=== PATIENT | female | born 1985 | race Two or more races ===

== ENCOUNTER → 2023-04-30 08:45 | Outpatient (CLI) | payer OTHER | END | disposition home or self-care (01) | LOC: PRENATAL 08:45 | PROVIDERS: ATTEND Obstetrics & Gynecology Maternal & Fetal Medicine | DX: O36.80X0 Pregnancy with inconclusive fetal viability, not applicable or unspecified (principal); Z36.9 Encounter for antenatal screening, unspecified; Z36.82 Encounter for antenatal screening for nuchal translucency; O99.891 Other specified diseases and conditions complicating pregnancy; Z3A.11 11 weeks gestation of pregnancy ==

== ENCOUNTER 2023-09-22 13:39 | Outpatient (CLI) | payer OTHER | END 2023-09-22 13:43 | disposition home or self-care (01) | LOC: PRENATAL 13:39 | PROVIDERS: ATTEND Obstetrics & Gynecology Maternal & Fetal Medicine | DX: O26.843 Uterine size-date discrepancy, third trimester (principal); O36.8130 Decreased fetal movements, third trimester, not applicable or unspecified; O99.891 Other specified diseases and conditions complicating pregnancy; O09.513 Supervision of elderly primigravida, third trimester; O99.013 Anemia complicating pregnancy, third trimester; Z3A.32 32 weeks gestation of pregnancy ==

== ENCOUNTER 2023-11-03 03:36 | Inpatient (IN) | payer OTHER ==
[~2023-11-03] VITALS: Ht 157.5 cm; Wt 64.0 kg
[2023-11-03] VITALS (7 sets, daily range): BP systolic 99–125; BP diastolic 57–70
[2023-11-03] MEDS ORDERED: SINGULAIR10 MG PO (03:45)
[2023-11-03] MEDS ORDERED: RINGERS SOLUTION,LACTATED 1,000 ML IV SCH (03:45)
[2023-11-03] MEDS ORDERED: PRENATAL TABLE1 EAC4 PO (03:45)
[2023-11-03] MEDS ORDERED: PEPCID AC20 MG PO (03:46)
[2023-11-03] MEDS ORDERED: CLARINEX-D 121 EACH PO (03:46)
[2023-11-03] MEDS ORDERED: PRILOSEC OTC20 MG PO (03:46)
[2023-11-03 05:06] LABS: HEMATOCRIT 35.9 % (36.0-45.00); MEAN CELL VOLUME 84.7 fL (80.00-100.00); MEAN CORPUSCULAR HEMOGLOBIN 28.4 pg (27.00-32.0); MEAN CORPUSCULAR HGB CONC 33.5 g/dl (32.0-36.0); PLATELET COUNT 205 K/uL (150-450); RED BLOOD COUNT 4.24 M/uL (4.00-6.00)
[2023-11-03 05:09] LABS: URINE APPEARANCE Clear; URINE BILIRRUBIN Negative (NEGATIVE); URINE BLOOD Negative; URINE COLOR Yellow; URINE GLUCOSE Negative (NEGATIVE); URINE KETONE 15 (NEGATIVE); URINE LEUKOCYTE Negative; URINE NITRATE Negative; URINE PROTEIN Negative (NEGATIVE); URINE UROBILINOGEN 0.2 E.U./dl
[2023-11-03 05:10] LABS: URINE BACTERIA 8.8 uL (0.0-1933); URINE EPITHELIAL CELLS 3.8 uL (0.0-38.8); URINE RBC 3.3 uL (0.0-20.8); URINE WBC 2.4 uL (0.0-23.2)
[2023-11-03 05:23] LABS: INR < 0.93; PARTIAL THROMBOPLASTIN TIME 24.4 SECONDS (22.0-34.0); PROTHROMBIN TIME 10.2 SECONDS (9.0-11.5)
[2023-11-03 05:27] LABS: ALBUMIN 2.6 gm/dL (3.4-5.0); BILIRUBIN TOTAL 0.28 mg/dL (0.3-1.2); CALCIUM 8.5 mg/dL (8.5-10.1); CREATININE SERUM 0.57 mg/dL (0.55-1.02); GFR 120.01; GLOBULINA 3.4 G/DL (2.4-3.5); POTASSIUM 3.57 mEq/L (3.5-5.1)
[2023-11-03] MEDS ORDERED: AMPICILLIN SODIUM 2,000 MG VIAL IV ONE (08:30)
[2023-11-03] MEDS ORDERED: AMPICILLIN SODIUM 1,000 MG VIAL IV SCH (12:00)
[2023-11-03] MEDS ORDERED: MORPHINE SULFATE 4 MG/ML VIAL IV ONE ×2 (14:00→19:15)
[2023-11-03] MEDS ORDERED: OXYTOCIN 500 ML IV SCH (19:15)
[2023-11-03] MEDS ORDERED: OXYTOCIN 1,000 ML IV SCH (22:00)
[2023-11-03] MEDS ORDERED: IBUprofen 400 MG TABLET PO PRN (22:00)
[2023-11-03] MEDS ORDERED: CHLORHEXIDINE GLUCONATE 120 ML BOTTLE TOP SCH (22:00)
[2023-11-03] MEDS ORDERED: ACETAMINOPHEN 500 MG GEL..CAP PO PRN (22:00)
[2023-11-04 02:32] VITALS: BP 95/60
[2023-11-04] MEDS ORDERED: DOCUSATE SODIUM 100MG CAP PO SCH (09:00)
[2023-11-04 10:29] VITALS: BP 105/69; O2SAT 97
[2023-11-04 16:20] VITALS: BP 103/79
[2023-11-05 01:15] VITALS: BP 103/69
[2023-11-05 08:00] VITALS: BP 115/77
[2023-11-05 16:00] VITALS: BP 109/68
[2023-11-06 01:58] VITALS: BP 124/83; O2SAT 0
[2023-11-06 08:50] VITALS: BP 106/69
[2023-11-06] MEDS ORDERED: COLACE100 MG PO (09:01)
== END 2023-11-06 17:12 | disposition home or self-care (01) | DRG 768 ==
LOC: LDR 03:36 → OB/GYN 11-04 03:06
PROVIDERS: ADMIT Obstetrics & Gynecology; ATTEND Obstetrics & Gynecology
PROC: 4A1HXCZ Monitoring of Products of Conception, Cardiac Rate, External Approach (ICD-10-PCS; 2023-11-03)
PROC: 10E0XZZ Delivery of Products of Conception, External Approach (ICD-10-PCS; principal; 2023-11-04)
PROC: 0DQR0ZZ Repair Anal Sphincter, Open Approach (ICD-10-PCS; 2023-11-04)
DX: O70.21 Third degree perineal laceration during delivery, IIIa (principal); Z37.0 Single live birth; O42.02 Full-term premature rupture of membranes, onset of labor within 24 hours of rupture; Z3A.38 38 weeks gestation of pregnancy; Z20.822 Contact with and (suspected) exposure to COVID-19